=== PATIENT | female | born 1965 | race Caucasian/White ===

== ENCOUNTER 2025-04-17 02:12 | Emergency (ER) | payer MEDICARE, SELFPAY ==
[2025-04-17 02:18] VITALS: BP 150/82
[2025-04-17 02:24] VITALS: BMI 23.4
[2025-04-17 02:32] LABS: Hematocrit 33.9 % (37.0-47.0); Hemoglobin 12.0 g/dL (12.0-16.0); Mean Corp Hgb Conc. 35.4 g/dL (33.0-37.0); Mean Corpuscular Volume 91.6 fL (81.0-99.0); Nucleated Red Blood Cells % 0 %; Platelet Count 413 10^3/uL (130-400); Red Cell Dist. Width 12.0 % (11.5-14.5)
[2025-04-17] MEDS: TORADOL 30 MG IV (02:42)
[2025-04-17] MEDS: ZOFRAN 4 MG IV (02:44)
[2025-04-17] MEDS: NSS 1000 IV (02:45)
--- NOTE | 2025-04-17 02:46 | ED.GENMED ---
History of Present Illness
General
Chief Complaint: Abdominal Symptoms
Source: patient
Exam Limitations: none
Time Seen by Provider: 04/17/25 02:35
Nursing documentation reviewed up to this point in time: agreed with
History of Present Illness
History of Present Illness:
This is a 60-year-old woman who awoke tonight with abrupt onset of severe epigastric pain that radiates to her back accompanied with nausea. She admits to severe pain, feeling restless. No history of similar episodes in the past. She does have
history of kidney stones as well as natural childbirth and admits that current quality of pain is quite similar.
She has history of MS, colitis, GERD, hiatal hernia, irritable bowel syndrome, kidney stones, asthma.
Previous abdominal surgeries include hysterectomy, appendectomy, lysis of adhesions.
Past History
Past History
ED Past Medical History: Asthma, GERD (Hiatal hernia), HTN and Other (MS, colitis, irritable bowel syndrome)
ED Past Surgical History: Appendectomy and Gynecological (hyster)
Social History
Tobacco: Non-smoker
Drug: None
Personal: Single
Living: with family
Employment: Not employed
Family History
Family History: Other (Noncontributory)
Phy Exam
Physical Exam
Physical Exam:
GENERAL: 60-year-old woman appears her stated age, awake and alert, appears in moderate distress, restless, anxious, otherwise cooperative.
EYE: pupils equal and reactive. anicteric
NECK: Supple, nontender, no meningismus, no significant adenopathy.
ENT: oral mucosa is moist. No rhinorrhea.
CARDIAC: Regular rate and rhythm. no murmur.
LUNGS: Clear breath sounds bilaterally, no acute respiratory distress, no wheezes/rales/rhonchi
ABDOMEN: Soft, nondistended, moderate tenderness epigastric region as well as mild to moderate tenderness right upper quadrant, no r/g, no cvat. normoactive BS.
NEUROLOGICAL: Alert and oriented x3, no focal neuro deficits.
SKIN: Warm and dry, normal color, skin intact. No rash.
MUSCULOSKELETAL: No C/C/E. peripheral pulses are full and equal b/l. No palpable tenderness.
PSYCH: Anxious and moderately restless related to pain.
Course
Orders/Labs/Results
Orders:
Orders
04/17/25 02:16
Complete Blood Count/With Diff Urgent
Comprehensive Metabolic Panel Urgent
Lipase Urgent
04/17/25 02:34
EKG [Electrocardiogram (*1)] Urgent
Reason for Study: Abdominal Pain
EKG- Treatment ONCE
04/17/25 02:40
Ketorolac [Toradol] 30 mg .ROUTE .STK-MED ONE
Ketorolac [Toradol] 30 mg IV NOW STA
Ondansetron Injectable [Zofran] 4 mg .ROUTE .STK-MED ONE
04/17/25 02:41
0.9% Sodium Chloride 1000 ml [Nss] 1,000 ml IV BOLUS
Ondansetron Injectable [Zofran] 4 mg IV NOW STA
04/17/25 02:58
Morphine Sulfate 6 mg IV NOW STA
04/17/25 04:11
US Abdomen Complete/Upper Urgent
Comment:
Reason For Exam: acute severe upper abd pain, elevated LFT's
Abnormal Lab Results
04/17/25
02:16
RBC 3.70 L 10^6/uL
(4.20-5.40)
Hct 33.9 L %
(37.0-47.0)
MCH 32.4 H pg
(27.0-31.0)
Plt Count 413 H 10^3/uL
(130-400)
Glucose 142 H mg/dl
(70-99)
AST 65 H U/L
(14-36)
ALT 49 H U/L
(0-35)
Alkaline Phosphatase 141 H U/L
(38-126)
04/17/25 02:16
04/17/25 02:16
Vital Signs
Initial and Last Documented VS:
Initial Vital Signs
Temp Pulse Resp BP Pulse Ox
98.4 F 80 22 150/82 97
04/17/25 02:18 04/17/25 02:18 04/17/25 02:18 04/17/25 02:18 04/17/25 02:18
Last Documented Vital Signs
Temp Pulse Resp BP Pulse Ox
98.4 F 105 19 133/82 95
04/17/25 02:18 04/17/25 04:45 04/17/25 04:45 04/17/25 04:00 04/17/25 04:45
MDM/Problems Addressed
Differential Diagnosis Includes:
Concern for acute biliary colic/cholecystitis, acute pancreatitis, gastric outlet obstruction, small bowel obstruction, renal colic, GERD/gastritis, ischemic bowel. ACS, abdominal aortic aneurysm/dissection are less likely.
MDM/Problems Addressed:
Acute severe upper abdominal pain radiating to the back associated with nausea.
Patient reports adverse reaction to Dilaudid which causes confusion/hallucination but able to take morphine without adverse event.
Will initiate trial IV Toradol for pain and will give Zofran for nausea. Initiate IV fluids.
Labs are pending as is EKG.
Chronic conditions affecting care:
MS, hiatal hernia, GERD, colitis, irritable bowel syndrome.
Chronic conditions affecting care: Previous abdomnial surgery
*Radiology
Radiology exam reviewed: radiology read reviewed
*Pulse Oximetry
SaO2: 97
Oxygen Mode of Delivery: Room air
Patient hypoxic: no
*EKG
Interpreted by ED Provider?: Yes
Interpretation: normal
Comparison EKG: no comparison EKG present
Rate: normal
Rhythm: sinus
[place]: normal axis
Interval: normal interval
QRS Pattern: normal QRS
Ischemia: no ischemia
*Macaroni Maker Interpretation
Rate: normal
Interpretation: normal
Rhythm: sinus
*Critical Care Note
Total Time (30-74mins, 75-104mins- exclusive of procedures): Not Applicable
Update Note
Update Note:
05:55
Patient is pain-free and comfortable after IV dose of morphine. No adverse events.
Now that she is pain-free, abdomen is soft without appreciable tenderness.
Labs are remarkable for minimally elevated LFTs as well as mildly elevated alkaline phosphatase with normal bilirubin. Unremarkable CBC. Normal lipase.
Abdominal ultrasound shows multiple gallstones in the gallbladder but no gallbladder wall thickening. Negative Bailey sign. Common bile duct of 4 mm.
History and exam consistent with acute biliary colic.
Reassuring that patient is pain-free. No evidence of cholecystitis or choledocholithiasis.
Will discharge to home with recommendation she maintain a strict low-fat diet.
Will refer to general surgery for prompt follow-up.
A prescription for a few Percocet as well as Zofran have been provided for as needed return of biliary colic. If this is not effective or if she develops similar pain accompanied with fever, patient knows to promptly return for further evaluation.
ED Attending Note
-
Portions of this chart may have been created with voice recognition software.� Occasional wrong word or��sound alike� substitutions may have occurred due to the inherent limitations of voice recognition software.
Discharge Plan
Departure
Patient Disposition: Home (Routine Discharge)
Date of Disposition: 04/17/25
Time of Disposition: 06:05
Patient with high blood pressure during this ER visit?: No
Condition: Good
Discharge Problem:
Acute biliary colic, Cholelithiasis
Instructions: Gallstones, Low-fat diet
Prescriptions:
New
oxycodone-acetaminophen [Percocet] 5-325 mg Tablet
1 tab PO Q4HPRN PRN (Reason: pain) Qty: 8 0RF
ondansetron 4 mg tablet,disintegrating
4 mg PO QID PRN (Reason: nausea and vomiting) Qty: 20 0RF
No Action
esomeprazole magnesium [Nexium] 40 MG capsule,delayed release(DR/EC)
40 mg PO DAILY
conjugated estrogens [Premarin] 1.25 MG tablet
2.5 mg PO DAILY
nifedipine 30 MG tablet extended release 24hr
30 mg PO DAILY
baclofen 20 MG tablet
20 mg PO .5XPERDAY
tfjcvdwrqq-axxyskp-skotcoyy 1 EACH tablet
2 ea PO PRN PRN (Reason: migraine)
gabapentin 100 MG capsule
200 mg PO TID
oxybutynin chloride 5 MG tablet
5 mg PO BID
topiramate 50 MG tablet
50 mg PO BID
duloxetine 60 MG capsule,delayed release(DR/EC)
60 mg PO .NIGHTLY
lubiprostone 24 MCG capsule
24 mcg PO BID
glatiramer [Copaxone] 40 MG/ML syringe
40 mg SQ .3XPERWEEK
Referrals:
Christian Bazzi MD [Active, Surgical] - Call in 1-3 days for appt
Interventions
Interventions:
*Risk Screen - Suicide Last Done: 04/17/25 02:28
*General Assessment Last Done: 04/17/25 02:28
*Neglect/Abuse Screening Last Done: 04/17/25 02:28
*ED COVID-19 Vaccine History Last Done: 04/17/25 02:28
*ED Influenza Vaccine History Last Done: 04/17/25 02:28
[facility] Risk Assessment Tool Last Done: 04/17/25 02:24
PN-Dkgekx-Npjzcoijba Assessment Last Done: 04/17/25 02:51
Discharge Date and Time
Print Language: SOUTH AFRICAN
[2025-04-17 02:53] LABS: ALT (SGPT) 49 U/L (0-35); AST (SGOT) 65 U/L (14-36); Albumin 4.2 g/dl (3.5-5.0); Alkaline Phosphatase 141 U/L (38-126); Blood Urea Nitrogen 16 mg/dl (7-17); Calcium 9.2 mg/dl (8.4-10.2); Carbon Dioxide 27 mmol/L (22-30); Chloride 104 mmol/L (98-107); Estimated Creatinine Clearance 66 ml/min; Glucose 142 mg/dl (70-99); Lipase 228 U/L (23-300); Potassium 4.0 mmol/L (3.5-5.1); Sodium 137 mmol/L (135-145); Total Protein 6.8 g/dl (6.3-8.2); eGFR > 60.00
[2025-04-17 03:00] VITALS: BP 144/74
[2025-04-17] MEDS: MORPHINE SULFATE 6 MG IV (03:08)
[2025-04-17 04:00] VITALS: BP 133/82
[2025-04-17 05:00] VITALS: BP 125/74
[2025-04-17 06:00] VITALS: BP 128/80
== END 2025-04-17 06:45 | disposition home or self-care (01) ==
LOC: EMR 02:12
PROVIDERS: EMERGENCY PHYSICIAN Emergency Medicine; FAMILY PHYSICIAN Family Medicine
DX: K80.70 Calculus of gallbladder and bile duct without cholecystitis without obstruction (principal); I10 Essential (primary) hypertension; J45.909 Unspecified asthma, uncomplicated; G35.D Multiple sclerosis, unspecified; K21.9 Gastro-esophageal reflux disease without esophagitis; K44.9 Diaphragmatic hernia without obstruction or gangrene; K58.9 Irritable bowel syndrome, unspecified; Z87.442 Personal history of urinary calculi
CPT/HCPCS: 76700; 80053; 83690; 85025; 93005; 96361; 96374; 96375; 99284

== ENCOUNTER 2025-04-17 22:00 | Inpatient (IN) | payer MEDICARE, SELFPAY ==
[2025-04-17] VITALS (7 sets, daily range): BP systolic 94–135; BP diastolic 71–85; BMI 22.5
[2025-04-17 18:00] LABS: Hematocrit 32.9 % (37.0-47.0); Hemoglobin 11.4 g/dL (12.0-16.0); Mean Corp Hgb Conc. 34.7 g/dL (33.0-37.0); Mean Corpuscular Volume 94.0 fL (81.0-99.0); Nucleated Red Blood Cells % 0 %; Platelet Count 364 10^3/uL (130-400); Red Cell Dist. Width 12.3 % (11.5-14.5)
[2025-04-17 18:18] LABS: ALT (SGPT) 322 U/L (0-35); AST (SGOT) 375 U/L (14-36); Albumin 3.8 g/dl (3.5-5.0); Alkaline Phosphatase 262 U/L (38-126); Blood Urea Nitrogen 14 mg/dl (7-17); Calcium 8.6 mg/dl (8.4-10.2); Carbon Dioxide 26 mmol/L (22-30); Chloride 103 mmol/L (98-107); Glucose 107 mg/dl (70-99); Potassium 3.6 mmol/L (3.5-5.1); Sodium 132 mmol/L (135-145); Total Protein 6.4 g/dl (6.3-8.2); eGFR > 60.00
[2025-04-17 18:23] LABS: COVID-19 Antigen Negative (Negative)
[2025-04-17 18:35] LABS: Urine Character Clear (Clear)
[2025-04-17] MEDS: NSS 1000 IV ×2 (18:39→22:54)
[2025-04-17 19:07] LABS: Urine Red Blood Cell 0-2 /HPF (0-2); Urine Squamous Cell 16-20 /LPF (Few); Urine White Cell 0-2 /HPF (0-5)
[2025-04-17 19:08] LABS: Lipase 145 U/L (23-300)
--- NOTE | 2025-04-17 20:07 | ED.GENMED ---
History of Present Illness
General
Chief Complaint: Fever
Source: patient
Exam Limitations: none
Time Seen by Provider: 04/17/25 17:35
Nursing documentation reviewed up to this point in time: agreed with
History of Present Illness
History of Present Illness:
Patient to the emergency department with complaint of fever. She was seen in the ED overnight last night with complaint of right upper quadrant pain. She was afebrile at that time. WBC remained normal. She had minimal elevation of AST ALT. T.
bili was normal. She had an ultrasound completed which identified multiple gallstones within the gallbladder but no evidence of wall thickening. CBD within normal measurement. Pain was controlled with narcotic pain medication while in the ED.
She states that pain eventually resolved and she was discharged home. After arriving home she developed a fever. She reports a fever of 102 that has lasted all day. She states tonight her daughter felt that she looked yellow and advised that she
come back to the emergency department for reassessment. On arrival to the ED she is awake and alert. Temp of 98.9 however she had Tylenol prior to arrival. She denies any abdominal pain. She denies any nausea or vomiting.
Past History
Past History
ED Past Medical History: Asthma, GERD (Hiatal hernia), HTN and Other (MS, colitis, irritable bowel syndrome)
ED Past Surgical History: Appendectomy and Gynecological (hyster)
Social History
Tobacco: Non-smoker
Drug: None
Personal: Single
Living: with family
Employment: Not employed
Family History
Family History: Other (Noncontributory)
Review of Systems
Review of Systems
Allergies reviewed?: Yes
All Other Systems: ROS reviewed and negative except as documented in HPI and ROS
Constitutional: Reports fever and fatigue
EENT: Reports no symptoms
Respiratory: Reports no symptoms
Cardiac: Reports no symptoms
ABD/GI: Reports no symptoms
: Reports no symptoms
Musculoskeletal: Reports no symptoms
Skin: Reports no symptoms
Neurological: Reports no symptoms
Psychiatric: Reports no symptoms
Phy Exam
General Physical Exam
General Presentation: mild distress
General age: appears stated age
General Skin: warm and dry
General Habitus: normal
General Mental: alert
Cardiovascular Exam
Cardiovascular Exam: regular rate/rhythm and no edema
Pulmonary Exam
Pulmonary Exam: lungs clear and no respiratory distress
Gastrointestinal Exam
Gastrointestinal Exam: normal bowel sounds, non tender, soft, no organomegaly, non distended and no cva tenderness
Musculoskeletal Exam
Musculoskeletal Exam: full ROM and neuro vasc intact
Skin Exam
Skin Exam: normal color, warm/dry and no rash
Psychiatric Exam
Psychiatric Exam: normal mood/affect
Course
Orders/Labs/Results
Orders:
Orders
04/17/25 Breakfast
NPO
Allow oral meds: Yes
Allow clear liquids: Sips of Clears
NPO with Ice Chips: Yes
04/17/25 17:48
Complete Blood Count/With Diff Urgent
Comprehensive Metabolic Panel Urgent
Lactic Acid Urgent
Lipase Urgent
Comment: ADD ON
Urinalysis Reflex To Culture Urgent
Date Specimen was Collected: 04/17/25
Time Specimen was Collected: 17:46
Urine Microscopic Reflex Cult Urgent
Blood Culture Urgent
JAKY Source: Blood/Venous
Specimen Description:
04/17/25 18:03
COVID-19 Antigen Urgent
Source: Nasal Swab
Influenza A+B Rapid Molecular Urgent
JAKY Source: Nasal Swab
Specimen Description:
04/17/25 18:33
US Abdomen Limited Urgent
Reason For Exam: upper abd. pain, fever. hx gallstones
04/17/25 18:34
Add On- LAB Urgent
Tests Added?: lipase
0.9% Sodium Chloride 1000 ml [Nss] 1,000 ml IV BOLUS
04/17/25 20:11
LevoFLOXacin 500 MG/100 ML [Levaquin] 500 mg in 100 ml IV NOW
MetroNIDAZOLE 500 MG/100 ML [Flagyl 500 mg] 100 ml IV NOW
04/17/25 21:26
Admit/Transfer Patient As Directed
Co-Sign Provider:
Level of Care: Inpatient admission
Assign to:: Medical/Surgical
Physician / Group: Tomy Plascencia
Diagnosis: Cholecystitis
Reason for Hospitalization: IV abx, Surgical consult
Expected length of stay greater than two midnights?: Yes
ELOS- Estimated Length of Stay in days: 3
I certify the patient meets the requirements for IP care: Yes
PRN Pain Medication Management As Directed
May give lesser potent ordered pain med per pt: Yes
preference::
Protocol:: Medication orders for pain may be administered in a
manner that supports deferring to patient preference
when the pt is:
- Requesting an ordered lesser potent pain medication.
Least to most potent pain medications are defined
as: acetaminophen < NSAID < tramadol < opioids
(morphine, oxycodone, hydromorphone).
- Requesting a lesser dose of the same medication IF
ORDERED.
- Requesting a less intrusive route of administration
if both routes are prescribed by the provider (PO <
IV).
04/17/25 21:29
Code Status As Directed
Resuscitation Status: Full Code
04/17/25 22:23
0.9% Sodium Chloride 1000 ml [Nss] 1,000 ml IV 100 mls/hr
Acetaminophen [Tylenol] 650 mg PO Q4HPRN PRN
Baclofen [Lioresal] 20 mg PO QID
Gabapentin [Neurontin] 100 mg PO TID
Ketorolac [Toradol] 10 mg IV Q6HPRN PRN
Morphine Sulfate 4 mg IV Q4HPRN PRN
dalfampridine 10 mg PO Q12H
04/17/25 22:23
SURGICAL CONSULT Routine
Consulting Provider: Darrell Gomez
Was physician already notified: Yes
Activity As Directed
Activity Level: Out of Bed-Early Mobility
With Assistance
I&O [Intake/ Output] As Directed
Frequency: q12h
Pneumatic Compression Sleeves As Directed
Type: Knee high
Vital Signs As Directed
Frequency: Per unit guidelines
Weight As Directed
Frequency: Daily
DX Deep Vein Thrombosis Video Routine
04/18/25 05:00
MetroNIDAZOLE 500 MG/100 ML [Flagyl 500 mg] 100 ml IV Q8H
04/18/25 06:00
Complete Blood Count/No Diff IN AM
Comprehensive Metabolic Panel IN AM
04/18/25 08:00
esomeprazole magnesium [Nexium] 40 mg PO BID
vibegron [Gemtesa] 75 mg PO DAILY
04/18/25 20:00
LevoFLOXacin 500 MG/100 ML [Levaquin] 500 mg in 100 ml IV Q24H
Abnormal Lab Results
04/17/25
17:48
RBC 3.50 L 10^6/uL
(4.20-5.40)
Hgb 11.4 L g/dL
(12.0-16.0)
Hct 32.9 L %
(37.0-47.0)
MCH 32.6 H pg
(27.0-31.0)
Absolute Neuts (auto) 8.1 H 10^3/uL
(1.4-6.5)
Absolute Lymphs (auto) 0.6 L 10^3/uL
(1.2-3.4)
Neutrophils % 87.6 H %
(42.2-75.2)
Lymphocytes % 6.2 L %
(20.5-51.1)
Sodium 132 L mmol/L
(135-145)
Glucose 107 H mg/dl
(70-99)
Total Bilirubin 3.4 H D mg/dl
(0.2-1.3)
AST 375 H U/L
(14-36)
ALT 322 H U/L
(0-35)
Alkaline Phosphatase 262 H U/L
(38-126)
Urine Bacteria (Reflex) Few A
(Negative)
Urine Albumin (Reflex) 2+ A
(Neg - Trace)
04/17/25 17:48
04/17/25 17:48
Vital Signs
Initial and Last Documented VS:
Initial Vital Signs
Temp Pulse BP Pulse Ox
98.9 F 100 132/74 98
04/17/25 16:38 04/17/25 16:38 04/17/25 16:38 04/17/25 16:38
Last Documented Vital Signs
Temp Pulse Resp BP Pulse Ox
98.6 F 108 18 135/85 99
04/17/25 22:33 04/17/25 22:32 04/17/25 22:32 04/17/25 22:32 04/17/25 22:32
*Radiology
Radiology exam reviewed: radiology read reviewed
*Pulse Oximetry
SaO2: 97
Oxygen Mode of Delivery: Room air
Patient hypoxic: no
*Critical Care Note
Total Time (30-74mins, 75-104mins- exclusive of procedures): Not Applicable
Update Note
Update Note:
Patient to the emergency department for evaluation of fever. She was seen in the emergency department overnight for evaluation of right upper quadrant pain. She was diagnosed at that time with multiple gallstones/renal colic. There was no
evidence of gallbladder wall thickening, no evidence of CBD dilatation. Pain resolved after she was given narcotic pain medication and IV fluids and she was discharged home. She states later this morning she developed a temp of 102 and this has
maintained all day. She denies any further abdominal pain. She was brought back to the emergency department by family for evaluation. Daughter felt that patient's skin was beginning to look yellow. Vital signs are stable and she has remained
afebrile while in ED. Labs reviewed. WBC remains normal at 9.2. AST is now 375, ALT 322, alk phos 262 and T. bili is 3.4. She was sent for repeat upper abdominal ultrasound. Report now with gallbladder wall thickening. Still no evidence for
biliary ductal dilatation. Findings discussed with Dr. Gomez. Recommends admission to hospitalist, repeat CMP in AM. Will hold off on MRCP until evaluation of repeat labs in AM. She was started on IV Levaquin and Flagyl (PCN allergy).
Discussed findings and plan with patient and spouse. She is agreeable to admission. She is resting comfortably however notes the start of mild discomfort to right upper quadrant and back. She declines any pain medication at this time.
ED Attending Note
-
Portions of this chart may have been created with voice recognition software.� Occasional wrong word or��sound alike� substitutions may have occurred due to the inherent limitations of voice recognition software.
Discharge Plan
Departure
Patient Disposition: Admit
Date of Disposition: 04/17/25
Time of Disposition: 20:24
Presentation/result/management discussed w/ accepting MD/DO: Hospitalist
Patient with high blood pressure during this ER visit?: No
Condition: Fair
Covid-19: Not Applicable
Discharge Problem:
Cholecystitis
Interventions
Interventions:
*Risk Screen - Suicide Last Done: 04/17/25 16:23
*General Assessment Last Done: 04/17/25 16:38
*Neglect/Abuse Screening Last Done: 04/17/25 16:38
*ED COVID-19 Vaccine History Last Done: 04/17/25 16:38
*ED Influenza Vaccine History Last Done: 04/17/25 16:38
[facility] Risk Assessment Tool Last Done: 04/17/25 16:21
*Nursing Disposition Last Done: 04/17/25 22:33
ED- Neurological Assessment Last Done: 04/17/25 18:08
ED-Skin Assessment Last Done: 04/17/25 18:08
Discharge Date and Time
Discharge Date/Time: 04/17/25 22:34
[2025-04-17] MEDS: LEVAQUIN 100 IV (20:17)
[2025-04-17] MEDS: FLAGYL 500 MG 100 IV (21:19)
--- NOTE | 2025-04-17 21:33 | HPS.HSE ---
Addendum entered and electronically signed by Tomy Plascencia MD 04/17/25 21:51:
60 female history of multiple sclerosis
Chief complaint epigastric discomfort radiating to the back associated vomiting
2-day history of abdominal tenderness that progressively got worse with radiation to the back mid thoracic region, sharp constant with periods of increase in intensity associated vomiting. Started having fevers of 102. Vomiting improved after
Zofran.
Right upper quadrant tenderness on deep palpation with facial grimacing however without guarding
Acute cholecystitis with transaminitis
Repeat CMP in the a.m.
IV fluids
IV antibiotics with levofloxacin Flagyl blood culture pending
Surgery aware
May consider MRCP pending CMP findings in the a.m.
N.p.o. after midnight
Multiple sclerosis
Continue baclofen and gabapentin
will bring dalfampridine
Migraine history
Nurtec as needed, will bring
Overactive bladder
Gemtesa
Original Note:
Family Physician
-
Family Physician: Derek Galindo
Chief Complaint
-
Abdominal Pain and Fever
History of Present Illness
Patient is a 60 y/o female past medical history of multiple sclerosis, irritable bowel syndrome, and hiatal hernia who presents with abdominal pain and fever. Patient was initially seen at the [facility] ED overnight last night with severe abdominal
pain. At that time her Abd US revealed multiple gallstone but no evidence of acute cholecystitis. At that time patient's LFTs were normal and she was afebrile. Pain improved and she was discharged home. However after discharge she developed
fevers as high as 102F at home prompting her to return to the emergency department. Patient was afebrile upon arrival, but reports taking Tylenol prior to leaving home.
Medical History
Past Medical History
Past Medical History: Reports Other
Additional Past Medical History:
Multiple Sclerosis
Migraine Headache
Irritable Bowel Syndrome
GERD / Hiatal Hernia
Asthma
Past Surgical History: Reports Other
Additional Past Surgical History:
Hysterectomy
Appendectomy
Lysis of Adhesions
Social History
Tobacco: Former Smoker
Alcohol: Occasional
Family History
Family History: Not pertinent
Allergies / Home Medications
Allergies reflects when Allergies were last updated in [facility].
Home Medications with original date entered in [facility]
Allergy/Medication List:
Allergies
Allergy/AdvReac Type Severity Reaction Status Date / Time
erythromycin base Allergy Rash Verified 04/17/25 16:44
hydromorphone (From Dilaudid) Allergy Unknown Verified 04/17/25 16:44
midazolam (From Versed) Allergy hallucinati Verified 04/17/25 16:44
ons
Penicillins Allergy Unknown Verified 04/17/25 16:44
prochlorperazine (From Allergy 'i get a Verified 04/17/25 16:44
Compazine) rash and
jumpy'
Home Medications
conjugated estrogens 1.25 mg tablet (Premarin) 1.25 mg PO DAILY Hormonal Agent 09/19/11
esomeprazole magnesium 40 mg capsule,delayed release (Nexium) 40 mg PO BID Gastrointestinal Issue 09/19/11
baclofen 20 mg tablet 20 mg PO QID Muscle Spasms 04/14/17
gabapentin 100 mg capsule 10 mg PO TID Neurological Condition 04/14/17
biotin 10 mg tablet 10 mg PO DAILY Supplement 04/17/25
cholecalciferol (vitamin D3) 25 mcg (1,000 unit) tablet (Vitamin D3) 25 mcg PO DAILY Supplement 04/17/25
dalfampridine 10 mg tablet,extended release,12 hr 10 mg PO Q12H 04/17/25
magnesium oxide 400 mg PO HS Electrolyte Repletion 04/17/25
potassium 99 mg tablet 99 mg PO DAILY Supplement 04/17/25
prucalopride 2 mg tablet (Motegrity) 2 mg PO HS Constipation 04/17/25
rimegepant 75 mg disintegrating tablet (Nurtec ODT) 75 mg PO DAILYPRN PRN MIGRAINES 04/17/25
vibegron 75 mg tablet (Gemtesa) 75 mg PO DAILY 04/17/25
Review of Systems
-
A 12 point ROS was completed and negative except as noted: Yes
Constitutional: Reports Fever
Respiratory: Denies Cough or Trouble Breathing
Cardiac: Denies Chest Pain or Palpitations
Abdomen/GI: Reports See HPI
Physical Exam
Vital Signs
Vital Signs
Temp Pulse Resp BP Pulse Ox
98.9 F 77 13 107/72 97
04/17/25 16:38 04/17/25 18:00 04/17/25 18:00 04/17/25 18:00 04/17/25 20:07
Physical Exam
General: Comfortable and Conversant
HEENT: Anicteric and Moist mucous membranes
Respiratory: Clear and Non Labored Respirations
Cardiac: S1/S2 and Regular Rhythm
GI: Soft and Tender (Epigastric / RUQ without rebound or guarding)
Musculoskeletal: No Clubbing, No Cyanosis and No Edema
Skin: Warm and Dry
Neuro: Awake, Alert, Oriented and Nonfocal/grossly intact
Psych: Calm
Laboratory Results
-
04/17/25 17:48
04/17/25 17:48
Laboratory Results
Lactic Acid 0.8 mmol/L (0.7-2.0) 04/17/25 17:48
Total Bilirubin 3.4 mg/dl (0.2-1.3) H D 04/17/25 17:48
AST 375 U/L (14-36) H 04/17/25 17:48
ALT 322 U/L (0-35) H 04/17/25 17:48
Alkaline Phosphatase 262 U/L (38-126) H 04/17/25 17:48
Lipase 145 U/L (23-300) 12/08/25 17:48
Abdomen US:
Cholelithiasis.
Suggestion of gallbladder wall thickening, especially anteriorly. Negative sonographic Bailey's sign. Please correlate with clinical symptoms that would suggest acute cholecystitis.
No evidence for biliary ductal dilation.
Data Reviewed
-
Ultrasound: Report Reviewed by me
Lab Data: Labs Reviewed by me
Impression/Plan
-
Acute Cholecystitis with Elevated LFTs, suspect passed gallstone as pain has resolved and no evidence of CBD dilation on ultrasound
-Consult Surgery
-Recheck LFTs in AM, if remains elevated plan for MRCP to evaluate for possible CBD stone
-Continue Levaquin / Flagyl
-Continue analgesic and anti-emetics
Hyponatremia, mild
-Continue IVFs
-Recheck sodium in AM
Multiple Sclerosis
-Continue baclofen and gabapentin
-Patient maintained on dalfampridine as outpatient
Migraine Headache
-Patient is uses Nurtec PRN as outpatient
Irritable Bowel Syndrome
-Patient maintained on Motegrity as outpatient
GERD / Hiatal Hernia
-Continue Protonix
DVT proph: SCDs
Code Status: Full Code
[2025-04-17] MEDS: LIORESAL 20 MG PO (22:53)
[2025-04-17] MEDS: TORADOL 10 MG IV (22:53)
[2025-04-17] MEDS: NEURONTIN 100 MG PO (22:54)
[2025-04-17] MEDS: ZOFRAN 4 MG IV (23:23)
[2025-04-18] MEDS: FLAGYL 500 MG 100 IV ×3 (04:28→21:29)
[2025-04-18 04:36] VITALS: BMI 22.7
[2025-04-18] MEDS: NSS 1000 IV (05:16)
[2025-04-18] MEDS: TORADOL 10 MG IV ×2 (06:15→13:30)
[2025-04-18] MEDS: NEURONTIN 100 MG PO ×3 (08:21→21:13)
[2025-04-18] MEDS: DETROL LA 4 MG PO (08:21)
[2025-04-18] MEDS: LIORESAL 20 MG PO ×3 (08:21→21:13)
[2025-04-18] MEDS: TYLENOL 650 MG PO (08:22)
[2025-04-18 08:52] VITALS: BP 112/63
--- NOTE | 2025-04-18 08:53 | CON.GS ---
Addendum entered and electronically signed by Darrell Gomez MD 04/18/25 15:04:
Correction:
-- Abx: Levo/Flagyl
Addendum entered and electronically signed by Darrell Gomez MD 04/18/25 15:03:
Patient seen and examined.
Patient is a 60 yo F with a PMH of GERD, MS, IBS with chronic constipation, and nephrolithiasis who presents with acute on chronic upper abdominal pain. Ms. Arndt states that over the past month she has had intermittent episodes of upper abdominal
pain which she attributed to her MS. Symptoms occur primarily at night and resolved within hours. She had an attack of upper abdominal/chest pain on 04/14. She was evaluated in the ER and discharged with outpatient management. She subsequently
had an attack yesterday morning - the severity of her pain and radiation to the back prompted presentation to the ER. Associated nausea and vomiting. Fevers up to 102. She reports pale stools, dark urine, and jaundice. She denies any of the
symptoms with her prior attacks. Currently she feels like her pain is much improved and almost resolved.
Gen: NAD
Abd: soft, NT/ND, negative Bailey's sign, non-peritoneal
Labs and imaging reviewed
Patient is a 60 yo F p/w acute on chronic cholecystitis versus choledocholithiasis
The natural history and pathophysiology of biliary and stone disease was discussed. Anatomy was reviewed. Options for management were reviewed. Given her downtrending bilirubin and LFTs would hold on an MRI at this time. Given her persistent
symptoms and severity with lab abnormalities, recommend a laparoscopic cholecystectomy with cholangiogram during this presentation. Timing pending OR availability. She may need repeat labs tomorrow and if at that time they remain elevated would
consider an MRCP. All questions answered.
-- Laparoscopic cholecystectomy with IOC, timing TBD
-- May need MRCP pending labs tomorrow, hold for now given trend down
-- Abx: Zosyn
-- Pain control: Tylenol and IV Dilaudid PRN
Original Note:
Consultation
-
Date/Time Consultation Requested: 04/17/2025
Date/Time Consultation Performed: 04/18/2025
Requesting Provider: Dacia العلي
Performing Provider: Dr. Gomez
Reason for Consultation: Acute cholecystitis
Medical History
-
Chief Complaint: Abdominal pain
History of Present Illness:
Ms. Arndt is a 60-year-old female with a past medical history of MS, IBS, chronic constipation, hiatal hernia, GERD, kidney stones, migraines, past history of colitis presenting with epigastric pain of several months. She initially came to the ER on
04/14 for chest pressure. At that time she described her symptoms as chest heaviness, muscle spasm like pain that made her feel short of breath sweaty and lightheaded and worsened with deep breathing. Workup at the time excluded cardiac causes of
her pain and patient was given pain medication antinausea medication and sent home. On 04/17 morning patient re-presented to the ER for similar epigastric/right upper quadrant pain now with radiation to the back. She reported having nausea vomiting
and abdominal tenderness. She reports having history of similar attacks in the abdomen in the past and reports that it has been going on for a long time however this is the worst episode. She reports no sick contacts or chest pain or shortness of
breath. An abdominal ultrasound in the ED was notable for multiple gallstones but no evidence of gallbladder wall thickening. Liver enzymes are elevated slightly at that time. Patient was diagnosed with acute biliary colic and sent home with
follow-up. Patient then presented again on 04/17 evening with fevers up to 102 and similar abdominal pain in the right upper quadrant radiating to the back. On arrival she was afebrile and pain had been controlled with pain medication given prior
to previous discharge. Another abdominal ultrasound redemonstrated cholelithiasis now with gallbladder wall thickening up to 6.7 mm with negative sonographic Bailey sign with no ductal dilation. Patient was started on IV fluids, IV antibiotics and
liver enzymes showed marked elevation compared to her earlier visit in the morning and new elevation in bilirubin. Patient endorsed dark urine and pale stools this a.m reports that pain has been improving..
Past Medical History
Past Medical History: GERD and Other (Multiple sclerosis, IBS constipation predominant, hiatal hernia, kidney stones, migraines)
Past Surgical History: Appendectomy, Gynecological (Hysterectomy) and Other (Lysis of adhesions)
Social History
Tobacco: Former Smoker
Alcohol: Occasional
Drug: None
Family History
Family History: Reviewed & Not Pertinent
Allergies / Home Medications
Allergy/AdvReac Type Severity Reaction Status Date / Time
erythromycin base Allergy Rash Verified 04/17/25 16:44
hydromorphone (From Dilaudid) Allergy Unknown Verified 04/17/25 16:44
midazolam (From Versed) Allergy hallucinati Verified 04/17/25 16:44
ons
Penicillins Allergy Unknown Verified 04/17/25 16:44
prochlorperazine (From Allergy 'i get a Verified 04/17/25 16:44
Compazine) rash and
jumpy'
�Medication �Instructions �Recorded �Confirmed �Type
conjugated estrogens 1.25 mg 1.25 mg PO DAILY Hormonal Agent 09/19/11 04/17/25 History
tablet (Premarin)
esomeprazole magnesium 40 mg 40 mg PO BID Gastrointestinal Issue 09/19/11 04/17/25 History
capsule,delayed release (Nexium)
baclofen 20 mg tablet 20 mg PO QID Muscle Spasms 04/14/17 04/17/25 History
gabapentin 100 mg capsule 100 mg PO TID Neurological 04/14/17 04/17/25 History
Condition
biotin 10 mg tablet 10 mg PO DAILY Supplement 04/17/25 04/17/25 History
cholecalciferol (vitamin D3) 25 25 mcg PO DAILY Supplement 04/17/25 04/17/25 History
mcg (1,000 unit) tablet (Vitamin
D3)
dalfampridine 10 mg 10 mg PO Q12H 04/17/25 04/17/25 History
tablet,extended release,12 hr
magnesium oxide 400 mg PO HS Electrolyte Repletion 04/17/25 04/17/25 History
potassium 99 mg tablet 99 mg PO DAILY Supplement 04/17/25 04/17/25 History
prucalopride 2 mg tablet 2 mg PO HS Constipation 04/17/25 04/17/25 History
(Motegrity)
rimegepant 75 mg disintegrating 75 mg PO DAILYPRN PRN MIGRAINES 04/17/25 04/17/25 History
tablet (Nurtec ODT)
vibegron 75 mg tablet (Gemtesa) 75 mg PO DAILY 04/17/25 04/17/25 History
Review of Systems
-
History Source: Patient
All other systems: Negative unless noted
Constitutional: Fever
Abdomen/GI: Abdominal Pain, Nausea, Vomiting and Constipated
A 10 point review of systems was completed, and was negative except as per HPI.
Physical Exam
Vital Signs
Temp Pulse Resp BP Pulse Ox
97.6 F 64 16 112/63 99
04/18/25 08:52 04/18/25 08:52 04/18/25 08:52 04/18/25 08:52 04/18/25 08:52
04/17/25 04/18/25 04/19/25
06:59 06:59 06:59
Actual Weight 61.779 kg
Body Mass Index (BMI) 22.7
Lab Results
WBC 9.2 10^3/uL (4.8-10.8) 04/17/25 17:48
Hgb 11.4 g/dL (12.0-16.0) L 04/17/25 17:48
Hct 32.9 % (37.0-47.0) L 04/17/25 17:48
Plt Count 364 10^3/uL (130-400) 04/17/25 17:48
Abs Immat Gran (auto) 0.0 10^3/uL (0-0.05) 04/17/25 17:48
Neutrophils % 87.6 % (42.2-75.2) H 04/17/25 17:48
Physical Exam
General: Well Developed, Well Nourished, No Apparent Distress and Comfortable
HEENT: Normocephalic and Anicteric
GI: Soft, Non Tender, Non Distended and Normal Bowel Sounds
Skin: Warm and Dry
Neuro: Awake and Alert
Assessment / Plan
-
Ms. Arndt is a 60-year-old female with a past medical history of MS, IBS, chronic constipation, hiatal hernia, GERD, kidney stones, migraines, past history of colitis presenting with epigastric pain. Abdominal ultrasound with gallbladder wall
thickening and cholelithiasis, concerning for cholecystitis.
The natural history and pathophysiology of cholecystitis was reviewed. Role of cholecystectomy in preventing future episodes of abdominal pain was discussed. Clinically improving, tentative plan for laparoscopic cholecystectomy with possible
cholangiogram this admission. All questions answered.
#Abdominal pain
#Cholecystitis
Total bili downtrending
LFTs downtrending
Less likely choledocholithiasis, cholangitis
-N.p.o.
-IV fluids
-Levaquin, Flagyl
-Antiemetics Zofran as needed
- Tylenol as needed
- Dilaudid as needed
-Plan for laparoscopic cholecystectomy this admission
[2025-04-18 09:00] VITALS: BP 118/64
[2025-04-18 09:14] LABS: Glucose - Point of Care 66 mg/dl (70-99)
[2025-04-18 09:28] LABS: Hematocrit 31.1 % (37.0-47.0); Hemoglobin 10.9 g/dL (12.0-16.0); Mean Corp Hgb Conc. 35.0 g/dL (33.0-37.0); Mean Corpuscular Volume 95.4 fL (81.0-99.0); Platelet Count 303 10^3/uL (130-400); Red Cell Dist. Width 12.4 % (11.5-14.5)
[2025-04-18 09:32] LABS: Glucose - Point of Care 67 mg/dl (70-99)
[2025-04-18] MEDS: DEXTROSE 50% SYRINGE 12.5 GRAMS IV (09:38)
[2025-04-18] MEDS: D5/0.45%NACL 1000 IV (09:39)
[2025-04-18 10:17] LABS: Glucose - Point of Care 198 mg/dl (70-99)
--- NOTE | 2025-04-18 10:30 | PTCARENOTE ---
patient awake and oriented this am, oral medications given as ordered. patient reporting feeling woozy, vitals noted and rechecked. noted heart rate in 50's and patient more drowsy, still reporting feeling woozy. accucheck blood sugar checked and
found to be 66. apple juice given and blood sugar rechecked after[address] results [address] Espinoza made aware and orders received for D50 , given as ordered at 094, blood sugar checked after 30 minutes and resulted at 198, patient more awake and no
longer feeling woozy, blood sugar monitoring thru out the day. plan of care on going.
--- NOTE | 2025-04-18 10:36 | W.PN.HOSP.TC ---
Today's Communication/Plan
-
Switch IV fluids to dextrose half-normal saline.
Continue with antibiotics
Follow LFTs
Hold baclofen for sedation
Assessment / Plan
Assessment / Plan
Acute Cholecystitis with Elevated LFTs, suspect passed gallstone as pain has resolved and no evidence of CBD dilation on ultrasound
-Ultrasound of abdomen shows gallbladder wall thickening especially anteriorly raising concern for cholecystitis.
- Afebrile and white count normal.
- LFT shows cholestatic hepatitis picture
- Await surgery eval
- Follow up LFTs pending, if remains elevated plan for MRCP to evaluate for possible CBD stone
-Continue Levaquin / Flagyl
-Continue analgesic and anti-emetics
Hyponatremia, mild
-Continue IVFs
-Recheck sodium
Multiple Sclerosis
-No evidence of flare
-Continue baclofen and gabapentin. On high dose of baclofen at home-hold for sedation
-Patient maintained on dalfampridine as outpatient
Lethargy
Patient seemed sedate. Suspect lack of sleep last night and along with pain medication [got morphine last night] and higher dose of baclofen
She is mildly hypoglycemic. No history of diabetes mellitus. She has noted episodes of low sugars at other times in her life.
Change IV fluids to dextrose
Check ammonia for completion.
Nonfocal neurologically.
Will follow clinically.
Migraine Headache
-Patient is uses Nurtec PRN as outpatient
Irritable Bowel Syndrome
-Patient maintained on Motegrity as outpatient
GERD / Hiatal Hernia
-Continue Protonix
DVT proph: SCDs
Code Status: Full Code
Discussed with RN
Discussed with family at bedside
Anticipated Discharge: > 48 hours
Subjective/Interval History
-
Date of Service: April 18, 2025
Patient is sleepy but arousable. When she is awake she is not confused. Daughter at bedside who does not see confusion but she definitely is weak and tired.
Patient did not get much sleep last night. She is on a high dose of baclofen along with gabapentin. Says sedation is not an issue at home.
She got morphine yesterday in the ER but nothing this morning so far.
Abdominal pain has resolved ever since she came in. No appetite. Does not feel nauseous this morning. No shortness of breath. Denies any worsening of weakness. She has a history of multiple sclerosis.
Denies any visual symptoms. No bladder or bowel dysfunction.
Objective Data
-
Labs:
Laboratory Results
04/18/25
09:02
WBC 6.1
Hgb 10.9 L
Hct 31.1 L
Plt Count 303
Sodium Pending
Potassium Pending
Chloride Pending
Carbon Dioxide Pending
BUN Pending
Creatinine Pending
Glucose Pending
Calcium Pending
Total Bilirubin Pending
AST Pending
ALT Pending
Alkaline Phosphatase Pending
Vital Signs:
Vital Signs
Temp Pulse Resp BP Pulse Ox
97.6 F 48 16 118/64 99
04/18/25 08:52 04/18/25 09:00 04/18/25 08:52 04/18/25 09:00 04/18/25 08:52
I&O
04/17/25 04/18/25 04/19/25
06:59 06:59 06:59
Intake Total 800 / 800
Balance 800 / 800
Physical Exam
-
General: Comfortable
Respiratory: Clear to Auscultation and Non Labored Respirations; Negative Accessory Resp Muscle Use
Cardiac: Regular Rhythm and S1/S2; Negative Tachycardic
GI: Soft, Nontender, Nondistended and Normal Bowel Sounds
Neuro: Oriented, No Motor Deficits and Sedated; Negative Tremors, Slurred Speech or Facial Droop
Psych: Calm; Negative Confused
Data Reviewed
-
Labs: Labs Reviewed by me
[2025-04-18 10:44] LABS: Glucose - Point of Care 186 mg/dl (70-99)
[2025-04-18 11:20] LABS: ALT (SGPT) 235 U/L (0-35); AST (SGOT) 174 U/L (14-36); Albumin 3.0 g/dl (3.5-5.0); Alkaline Phosphatase 238 U/L (38-126); Blood Urea Nitrogen 17 mg/dl (7-17); Calcium 8.6 mg/dl (8.4-10.2); Carbon Dioxide 22 mmol/L (22-30); Chloride 110 mmol/L (98-107); Estimated Creatinine Clearance 89 ml/min; Glucose 59 mg/dl (70-99); Potassium 3.4 mmol/L (3.5-5.1); Sodium 135 mmol/L (135-145); Total Protein 5.6 g/dl (6.3-8.2); eGFR > 60.00
--- NOTE | 2025-04-18 11:33 | CM ---
Patient seen bedside w/ mother, initial assessment completed. Patient is a 60 y/o female past medical history of multiple sclerosis, irritable bowel syndrome, and hiatal hernia who presents with abdominal pain and fever.
Patient resides w/ spouse and her mother in a single story home, 1 step to enter. Patient uses w/c and scooter. Patient stated she walks around the house good. No SNF/HC hx. Aqua therapy hx which patient stated she is planning to start again.
Address, point of contact and insurance verified
PCP: Derek Galindo
Pharmacy: [facility]
Plan for laparoscopic cholecystectomy this admission
Plan: CM will cont to follow for d/c planning
[2025-04-18 11:47] LABS: Ammonia < 9 umol/L (9-30)
[2025-04-18 12:05] LABS: Glucose - Point of Care 160 mg/dl (70-99)
[2025-04-18] MEDS: NON-FORMULARY ITEM 1 UNIT PO ×2 (12:40→20:16)
[2025-04-18] MEDS: NON-FORMULARY ITEM 10 MG PO ×2 (12:41→20:17)
[2025-04-18] MEDS: NON-FORMULARY ITEM 75 MG PO (12:48)
[2025-04-18] MEDS: LIORESAL PO (12:48)
[2025-04-18] MEDS: KCL 160 MEQ IV (13:32)
[2025-04-18 16:17] VITALS: BP 121/77
[2025-04-18] MEDS: LEVAQUIN 100 IV (20:15)
[2025-04-18 21:45] LABS: Glucose - Point of Care 111 mg/dl (70-99)
[2025-04-18 23:44] VITALS: BP 116/60
[2025-04-19] VITALS (10 sets, daily range): BP systolic 97–142; BP diastolic 65–85; BMI 23.0
[2025-04-19] MEDS: ZOFRAN 4 MG IV ×3 (00:44→20:05)
[2025-04-19] MEDS: D5/0.45%NACL 1000 IV ×2 (02:10→23:05)
[2025-04-19] MEDS: FLAGYL 500 MG 100 IV ×3 (05:31→21:13)
[2025-04-19] MEDS: TYLENOL 650 MG PO (05:38)
[2025-04-19 06:00] LABS: Glucose - Point of Care 95 mg/dl (70-99)
[2025-04-19 07:37] LABS: Hematocrit 30.0 % (37.0-47.0); Hemoglobin 10.6 g/dL (12.0-16.0); Mean Corp Hgb Conc. 35.3 g/dL (33.0-37.0); Mean Corpuscular Volume 94.0 fL (81.0-99.0); Platelet Count 326 10^3/uL (130-400); Red Cell Dist. Width 12.2 % (11.5-14.5)
[2025-04-19 08:12] LABS: ALT (SGPT) 162 U/L (0-35); AST (SGOT) 61 U/L (14-36); Albumin 2.8 g/dl (3.5-5.0); Alkaline Phosphatase 201 U/L (38-126); Blood Urea Nitrogen 8 mg/dl (7-17); Calcium 8.1 mg/dl (8.4-10.2); Carbon Dioxide 26 mmol/L (22-30); Chloride 109 mmol/L (98-107); Estimated Creatinine Clearance 89 ml/min; Glucose 94 mg/dl (70-99); Potassium 3.8 mmol/L (3.5-5.1); Sodium 137 mmol/L (135-145); Total Protein 5.3 g/dl (6.3-8.2); eGFR > 60.00
[2025-04-19 09:20] LABS: Glucose - Point of Care 91 mg/dl (70-99)
--- NOTE | 2025-04-19 10:57 | W.IMMPOSTOP ---
Surgical Immed Post Op Note
-
Primary Surgeon: Patricia
Assisting Surgeon: Casi PGY2
Pre-op Diagnosis: Choledocholithiasis
Post-op Diagnosis: Choledocholithiasis
Procedure Performed: Laparoscopic cholecystectomy with IOC
Anesthesia Type: General
Specimen / Cultures:
1. Gallbladder
Estimated Blood Loss: 3 cc
Complications: None
Operative Findings:
1. Distended, flaccid GB with small cholesterol stones, mild wall thickening
2. Critical view of safety
3. IOC with distal filling defect, dilated CBD, persisted after Glucagon and flushing
4. Duct and artery taken with clips
--- NOTE | 2025-04-19 11:24 | CON.GI ---
Consultation
-
Date/Time Consultation Performed: 04/19/25
Performing Provider: Peña Reaves MD
Reason for Consultation: CBD stone
Medical History
Chief Complaint / HPI
Chief Complaint: abdominal pain
History of Present Illness:
The patient is a 60-year-old female with past medical history send who presents with abdominal pain. Has been having episodes of epigastric pain with radiation to the back for some time, though became much worse. She was recently In the emergency
room the discharged, now returns with pain and fever. Ultrasound showed gallbladder wall thickening and gallstones, though no duct dilation. LFTs were minimally elevated initially. She had cholecystectomy, and intraoperative cholangiogram showed
CBD stone which did not pass after several maneuvers. Currently she is seen in postop with some nausea though not having any significant abdominal pain. She denies any chest pain or shortness of breath. She usually follows with Dr. Healy at
[facility] for constipation predominant IBS and heartburn.
Past Medical History
Past Medical History: Other (MS, IBS, GERD, hiatal hernia, migraines, asthma)
Past Surgical History: Other (Hysterectomy, appendectomy, lysis of adhesions)
Social History
Tobacco: Former Smoker
Alcohol: None
Family History
Family History: Reviewed & Not Pertinent
Allergies / Home Medications
Allergy/AdvReac Type Severity Reaction Status Date / Time
erythromycin base Allergy Rash Verified 04/18/25 10:40
hydromorphone (From Dilaudid) Allergy Unknown Verified 04/18/25 10:40
midazolam (From Versed) Allergy hallucinati Verified 04/18/25 10:40
ons
Penicillins Allergy Unknown Verified 04/18/25 10:40
prochlorperazine (From Allergy 'i get a Verified 04/18/25 10:40
Compazine) rash and
jumpy'
�Medication �Instructions �Recorded
conjugated estrogens 1.25 mg 1.25 mg PO DAILY Hormonal Agent 09/19/11
tablet (Premarin)
esomeprazole magnesium 40 mg 40 mg PO BID Gastrointestinal Issue 09/19/11
capsule,delayed release (Nexium)
baclofen 20 mg tablet 20 mg PO QID Muscle Spasms 04/14/17
gabapentin 100 mg capsule 100 mg PO TID Neurological 04/14/17
Condition
biotin 10 mg tablet 10 mg PO DAILY Supplement 04/17/25
cholecalciferol (vitamin D3) 25 25 mcg PO DAILY Supplement 04/17/25
mcg (1,000 unit) tablet (Vitamin
D3)
dalfampridine 10 mg 10 mg PO Q12H 04/17/25
tablet,extended release,12 hr
magnesium oxide 400 mg PO HS Electrolyte Repletion 04/17/25
potassium 99 mg tablet 99 mg PO DAILY Supplement 04/17/25
prucalopride 2 mg tablet 2 mg PO HS Constipation 04/17/25
(Motegrity)
rimegepant 75 mg disintegrating 75 mg PO DAILYPRN PRN MIGRAINES 04/17/25
tablet (Nurtec ODT)
vibegron 75 mg tablet (Gemtesa) 75 mg PO DAILY 04/17/25
Review of Systems
-
All other systems: A 12 pt ROS was Negative except as stated above in HPI
Vital Signs
Temp Pulse Resp BP Pulse Ox
98.3 F 77 12 127/67 100
04/19/25 08:06 04/19/25 11:15 04/19/25 11:15 04/19/25 11:15 04/19/25 11:15
Physical Exam
Exam
General: NAD
HEENT: MMM, anicteric, no lymphadenopathy
Heart: Regular, no murmurs
Lungs: CTA bilaterally
Abdomen: normal bowel sounds, soft, surgical sites, clean, dry and intact, mild expected tenderness
Extremeties: no edema
Skin: no rashes
Results
WBC 4.7 10^3/uL (4.8-10.8) L 04/19/25 06:26
Hgb 10.6 g/dL (12.0-16.0) L 04/19/25 06:26
Hct 30.0 % (37.0-47.0) L 04/19/25 06:26
MCV 94.0 fL (81.0-99.0) 04/19/25 06:26
Plt Count 326 10^3/uL (130-400) 04/19/25 06:26
Absolute Neuts (auto) 8.1 10^3/uL (1.4-6.5) H 04/17/25 17:48
Sodium 137 mmol/L (135-145) 04/19/25 06:26
Potassium 3.8 mmol/L (3.5-5.1) 04/19/25 06:26
Chloride 109 mmol/L (98-107) H 04/19/25 06:26
Carbon Dioxide 26 mmol/L (22-30) 04/19/25 06:26
BUN 8 mg/dl (7-17) 04/19/25 06:26
Creatinine 0.6 mg/dL (0.6-1.0) 04/19/25 06:26
Calcium 8.1 mg/dl (8.4-10.2) L 04/19/25 06:26
Total Bilirubin 0.8 mg/dl (0.2-1.3) D 04/19/25 06:26
AST 61 U/L (14-36) H 04/19/25 06:26
ALT 162 U/L (0-35) H 04/19/25 06:26
Alkaline Phosphatase 201 U/L (38-126) H 04/19/25 06:26
Lipase 145 U/L (23-300) 04/17/25 17:48
Diagnostic Image Results:
US:
IMPRESSION: Cholelithiasis.
Suggestion of gallbladder wall thickening, especially anteriorly. Negative sonographic Bailey's sign. Please correlate with clinical symptoms that would suggest acute cholecystitis.
No evidence for biliary ductal dilation.
Echogenic mass within the left lobe of the liver, corresponding to the hemangioma seen on CT scan in 2007, with interval increase in size since 2007.
Prior GI Procedures:
EGD:
Colonoscopy:
Assessment / Plan
-
1. CBD stone: Noted on IOC. Will plan ERCP today. I discussed with the patient and her at length including risks and benefits.
-
-
Thank you for consultation and allowing me to participate in the patient's care. Please call the injection molding machine operator GI physician during the after hours with any questions or concerns.
[2025-04-19] MEDS: DETROL LA PO (12:06)
[2025-04-19] MEDS: LIORESAL PO ×2 (12:06)
[2025-04-19] MEDS: NON-FORMULARY ITEM PO ×2 (12:06)
[2025-04-19] MEDS: NEURONTIN PO ×2 (12:06→17:36)
--- NOTE | 2025-04-19 13:11 | W.PN.HOSP.TC ---
Today's Communication/Plan
-
For ERCP today
Continue with antibiotics
Assessment / Plan
Assessment / Plan
Acute Cholecystitis
Cholelithiasis
Choledocholithiasis
Post laparoscopic cholecystectomy today
Going for ERCP today
Afebrile. White count normal. Nontoxic.
Improving LFTs.
Will discontinue antibiotics post ERCP if am okay from GI standpoint
Hyponatremia normalized
Multiple Sclerosis
-No evidence of flare
-Continue baclofen and gabapentin. On high dose of baclofen at home-hold for sedation
-Patient maintained on dalfampridine as outpatient
Lethargy
Resolved
Migraine Headache
-Patient is uses Nurtec PRN as outpatient
Irritable Bowel Syndrome
-Patient maintained on Motegrity as outpatient
GERD / Hiatal Hernia
-Continue Protonix
DVT proph: SCDs
Code Status: Full Code
Discussed with family at bedside
Discussed surgery after the lap jasvir about the positive IOC n GI consult
Anticipated Discharge: 24 - 48 hours
Subjective/Interval History
-
Date of Service: April 19, 2025
Feels uneasy discomfort in stomach. She is post cholecystectomy. IOC reveals a CBD stone. Going for ERCP.
Denies shortness of breath or chest pain.
No dizziness.
Objective Data
-
Labs:
Laboratory Results
04/19/25
06:26
WBC 4.7 L
Hgb 10.6 L
Hct 30.0 L
Plt Count 326
Sodium 137
Potassium 3.8
Chloride 109 H
Carbon Dioxide 26
BUN 8
Creatinine 0.6
Glucose 94
Calcium 8.1 L
Total Bilirubin 0.8 D
AST 61 H
ALT 162 H
Alkaline Phosphatase 201 H
Vital Signs:
Vital Signs
Temp Pulse Resp BP Pulse Ox
97.8 F 84 18 110/65 97
04/19/25 12:04 04/19/25 12:04 04/19/25 12:04 04/19/25 12:04 04/19/25 12:04
I&O
04/18/25 04/19/25 04/20/25
06:59 06:59 06:59
Intake Total 800 / 800 2290 / 2290 50 / 50
Output Total 250 / 250
Balance 800 / 800 2040 / 2040 50 / 50
Physical Exam
-
General: Comfortable
Respiratory: Clear to Auscultation and Non Labored Respirations; Negative Accessory Resp Muscle Use
Cardiac: Regular Rhythm and S1/S2; Negative Tachycardic
GI: Soft, Nondistended, Normal Bowel Sounds and Tender (discomfort on incisions)
Neuro: AO x 3
Psych: Calm
Data Reviewed
-
Labs: Labs Reviewed by me
[2025-04-19 13:39] LABS: Glucose - Point of Care 115 mg/dl (70-99)
[2025-04-19] MEDS: LIORESAL 20 MG PO ×2 (18:04→21:13)
[2025-04-19] MEDS: LOVENOX 40 MG SC (18:04)
[2025-04-19] MEDS: CYMBALTA DELAYED RELEASE 60 MG PO (18:40)
[2025-04-19] MEDS: LEVAQUIN 100 IV (19:43)
[2025-04-19] MEDS: NON-FORMULARY ITEM 1 UNIT PO (19:43)
[2025-04-19] MEDS: NON-FORMULARY ITEM 10 MG PO (19:43)
[2025-04-19] MEDS: NEURONTIN 100 MG PO (21:13)
[2025-04-19] MEDS: D5/0.45%NACL IV (23:05)
[2025-04-20 03:19] VITALS: BP 131/70
[2025-04-20] MEDS: ZOFRAN 4 MG IV (03:19)
[2025-04-20] MEDS: FLAGYL 500 MG 100 IV (04:27)
[2025-04-20 05:06] VITALS: BMI 23.1
--- NOTE | 2025-04-20 06:51 | W.PN.GI.CBS2 ---
Today's Communication / Plan
-
Please see assessment and plan for details.
Assessment / Plan
-
1. CBD stone: Postcholecystectomy, noted on IOC, status post ERCP with needle-knife sphincterotomy and balloon sweep, overall doing very well, no signs of pancreatitis today. Will await morning labs, though continue postoperative care per surgery.
We will sign off now, please call back with any further questions.
Subjective
Subjective
Date of Service: April 20, 2025
Patient feeling well overnight, no nausea or vomiting, tolerated clears without difficulty. Some mild incisional pain though otherwise without any abdominal pain.
Objective
Data Reviewed
Laboratory Data:
Laboratory Results
04/19/25 06:26
Laboratory Results
Total Bilirubin 0.8 mg/dl (0.2-1.3) D 04/19/25 06:26
AST 61 U/L (14-36) H 04/19/25 06:26
ALT 162 U/L (0-35) H 04/19/25 06:26
Alkaline Phosphatase 201 U/L (38-126) H 04/19/25 06:26
Lipase 145 U/L (23-300) 04/17/25 17:48
Vital Signs and I&O:
Vital Signs
Temp Pulse Resp BP Pulse Ox
98.8 F 74 16 131/70 99
04/20/25 03:19 04/20/25 03:19 04/20/25 03:19 04/20/25 03:19 04/20/25 03:19
I&O
04/18/25 04/19/25 04/20/25
06:59 06:59 06:59
Intake Total 800 / 800 2290 / 2290 3700 / 3700
Output Total 250 / 250 3600 / 3600
Balance 800 / 800 2040 / 2040 100 / 100
Physical Exam
Physical Exam
General: NAD
Abdomen: normal bowel sounds, soft, mild incisional tenderness, no masses or bruits, no ascites
[2025-04-20 07:03] VITALS: BP 136/74
[2025-04-20 07:56] LABS: ALT (SGPT) 157 U/L (0-35); AST (SGOT) 70 U/L (14-36); Albumin 2.9 g/dl (3.5-5.0); Alkaline Phosphatase 255 U/L (38-126); Blood Urea Nitrogen 3 mg/dl (7-17); Calcium 8.5 mg/dl (8.4-10.2); Carbon Dioxide 29 mmol/L (22-30); Chloride 107 mmol/L (98-107); Estimated Creatinine Clearance 89 ml/min; Glucose 116 mg/dl (70-99); Potassium 3.6 mmol/L (3.5-5.1); Sodium 138 mmol/L (135-145); Total Protein 5.4 g/dl (6.3-8.2); eGFR > 60.00
--- NOTE | 2025-04-20 09:06 | W.PN.GS2 ---
Today's Communication / Plan
-
-- DC instructions updated
-- F/u in 2-4 weeks
Assessment / Plan
-
Patient is a 60 yo F p/w choledocholithiasis
POD#1 s/p laparoscopic cholecystectomy with IOC
PPD#1 s/p ERCP with stone extraction
AVSS
Labs notable for normal electrolytes, renal function, bilirubin, stable LFTs, mild bump in ALP
Clinically doing well. No postoperative concerns. DC instructions updated. Follow-up as an outpatient.
-- Regular diet
-- Pain control: Tylenol, Toradol, Tramadol
-- DC instructions updated
-- F/u in 2-4 weeks
Subjective Data
-
Date of Service: April 20, 2025
No complaints. Pain well-controlled. No nausea or vomiting. No fevers.
Objective Data
-
Intake and Output
04/19/25 04/20/25 04/21/25
06:59 06:59 06:59
Intake Total 2290 / 2290 3700 / 3700
Output Total 250 / 250 3600 / 3600
Balance 2040 / 2040 100 / 100
Intake:
Oral fluids 840 / 840 1440 / 1440
IV fluids (Total) 1000 / 1000 1860 / 1860
LR 50 / 50
Normosol 50 / 50
IV piggybacks 450 / 450 400 / 400
Output:
Urine, Voided 250 / 250 3600 / 3600
Other:
How many times incontinent 1 1
MODERATE amount urine
Number of approximated MODERATE 1 1
amounts of urine
Number of approximated LARGE 2
amounts of urine
Vital Signs
Temp Pulse Resp BP Pulse Ox
98.8 F 74 16 131/70 99
04/20/25 03:19 04/20/25 03:19 04/20/25 03:19 04/20/25 03:19 04/20/25 03:19
Lab Results
04/19/25 06:26
04/20/25 06:20
Calcium 8.5 mg/dl (8.4-10.2) 04/20/25 06:20
Total Bilirubin 0.7 mg/dl (0.2-1.3) 04/20/25 06:20
AST 70 U/L (14-36) H 04/20/25 06:20
ALT 157 U/L (0-35) H 04/20/25 06:20
Alkaline Phosphatase 255 U/L (38-126) H 04/20/25 06:20
Total Protein 5.4 g/dl (6.3-8.2) L 04/20/25 06:20
Albumin 2.9 g/dl (3.5-5.0) L 04/20/25 06:20
Physical Exam
-
Gen: NAD
Abd: soft, mild tenderness, ND, non-peritoneal, incisions c/d/i - no erythema, ecchymosis or drainage
Patient has a srinivasan catheter: No
Patient has a central line: No
[2025-04-20] MEDS: CYMBALTA DELAYED RELEASE 60 MG PO (09:50)
[2025-04-20] MEDS: PREMARIN 1.25 MG PO (09:50)
[2025-04-20] MEDS: NEURONTIN 100 MG PO (09:50)
[2025-04-20] MEDS: LIORESAL 20 MG PO (09:51)
[2025-04-20] MEDS: NON-FORMULARY ITEM 1 MG PO (09:51)
[2025-04-20] MEDS: DETROL LA 4 MG PO (09:51)
[2025-04-20] MEDS: NON-FORMULARY ITEM 1 UNIT PO (09:52)
--- NOTE | 2025-04-20 10:35 | VNURNOTE ---
Chart reviewed. [facility] liaison met with pt at bedside. Explained services: short term, intermittent, skilled. Patient pleasant, verbalized understanding and stated she didn't think she needed home services. She plans on following up with her Drs:
Neurologist (yesica MS) and surgeon. BISHOP Patel updated. No referral placed.
[2025-04-20] MEDS: D5/0.45%NACL 1000 IV (11:42)
--- NOTE | 2025-04-20 11:55 | W.DCSUMMARY ---
Discharge Summary
Discharge Data
Date of Admission: 04/17/25
Date of Discharge: 04/20/25
-
Pending Results: Yes (Gallbladder pathology)
Hospital Course
Primary diagnosis:
Acute cholecystitis
Cholelithiasis
Choledocholithiasis
Status post lap cholecystectomy and ERCP
Secondary diagnosis:
Multiple sclerosis
Migraine headaches
Irritable bowel syndrome
Gastroesophageal reflux disease
Hospital course:
Patient presented with epigastric discomfort radiating to back and vomiting and diagnosed to have acute cholecystitis with cholelithiasis on imaging.�She went on to have laparoscopic cholecystectomy and intraoperative cholangiogram showed CBD stone
so had an ERCP. LFTs were improving. She was tolerating diet. She was advised to repeat LFTs in a week to make sure they are normalized.
No changes were made to her home medication regimen.
Today she is breathing comfortable. Denies nausea vomiting. Tolerated oral solid diet. Abdomen was soft without tenderness apart from incisional area discomfort. Chest was clear. No dizziness.
Afebrile, pulse was 74, blood pressure 1 3674, not hypoxic.
Deemed stable for discharge home today.
Consultants on board:
Interventional GI-Michael Rubio
General Surgery-Darrell Maldonado
Portions of this chart may have been created with voice recognition software. Occasional wrong word or 'sound alike' substitutions may have occurred due to the inherent limitations of voice recognition software.
Discharge Plan
-
Patient Disposition: Home (Routine Discharge)
Discharge Diagnosis/Procedures: Acute cholecystitis with cholelithiasis and choledocholithiasis status post laparoscopic cholecystectomy and ERCP
Diet: Regular and Low Fat
Additional Diets: Follow a low-fat diet if any issues with bloating or diarrhea
Activity: No strenuous activity
Additional Activity: No heavy lifting (>20 lbs) or strenuous activities for 2 to 3 weeks postoperatively but there should be any issue with
Driving Restrictions: No driving if too sore or taking narcotics yeah
Bathing Restrictions: OK to Shower
Blood Work: CMP blood work in one week -arrange through your PCP
Wound Care: Keep incisions clean and dry. Glue will flake off in 2 to 3 weeks. Stitches will dissolve. Use ice to the abdomen to reduce any bruising or swelling.
Activity Restrictions/Additional Instructions:
Call for fevers (>100.5), nausea vomiting, nursing abdominal pain
Referrals:
Darrell Gomez MD [Active, Surgical] - in two to four weeks
Derek Galindo MD [Family Provider, Family Practice] - in less than 1 week
Prescriptions:
New
acetaminophen 325 mg Tablet
650 mg PO Q4HPRN PRN (Reason: mild pain/ fever>100.5F) Qty: 1 0RF
Continued
esomeprazole magnesium [Nexium] 40 MG capsule,delayed release(DR/EC)
40 mg PO BID
conjugated estrogens [Premarin] 1.25 MG tablet
1.25 mg PO DAILY
baclofen 20 MG tablet
20 mg PO QID
gabapentin 100 MG capsule
100 mg PO TID
Gemtesa 75 mg Tablet
75 mg PO DAILY
biotin 10 mg Tablet
10 mg PO DAILY
potassium 99 mg Tablet
99 mg PO DAILY
cholecalciferol (vitamin D3) [Vitamin D3] 25 mcg (1,000 unit) Tablet
25 mcg PO DAILY
dalfampridine 10 mg Tablet Extended Release 12 Hr
10 mg PO Q12H
prucalopride [Motegrity] 2 mg Tablet
2 mg PO HS
magnesium oxide 400 mg magnesium Tablet
400 mg PO HS
Nurtec ODT 75 mg Tablet,Disintegrating
75 mg PO DAILYPRN PRN (Reason: MIGRAINES)
Patient Comments:
FREE FROM COMPANY
duloxetine 60 mg Capsule,Delayed Release(Dr/Ec)
60 mg PO DAILY
Discharge Orders:
Discharge Patient (As Directed); Ordered 04/20/25
Ordered By: Isaias Espinoza
Discharge Date and Time
Print Language: GUATEMALAN
[2025-04-20 12:13] VITALS: BP 121/69
[2025-04-20 12:48] VITALS: BP 132/70
--- NOTE | 2025-04-20 14:18 | CM ---
MD entered order or discharge .
Initially she requested [facility].
Spoke with pt she declined [facility] .
will drive her home .
IMM reviewed signed .
PLAN Home no needs
== END 2025-04-20 13:21 | disposition home or self-care (01) | DRG 445 ==
LOC: 4 EAST ACU 22:00
PROVIDERS: Internal Medicine Gastroenterology; Nurse Practitioner; Physician Assistant Medical; Surgery; ADMITTING PHYSICIAN Hospitalist; ATTENDING PHYSICIAN Internal Medicine; CONSULT PHYSICIAN Internal Medicine Gastroenterology; EMERGENCY PHYSICIAN Emergency Medicine; FAMILY PHYSICIAN Family Medicine
PROC: BF101ZZ Fluoroscopy of Bile Ducts using Low Osmolar Contrast (ICD-10-PCS; 2025-04-19)
PROC: BF4CZZZ Ultrasonography of Hepatobiliary System, All (ICD-10-PCS; 2025-04-19)
PROC: 0FC98ZZ Extirpation of Matter from Common Bile Duct, Via Natural or Artificial Opening Endoscopic (ICD-10-PCS; 2025-04-19)
DX: K80.62 Calculus of gallbladder and bile duct with acute cholecystitis without obstruction (principal); E87.1 Hypo-osmolality and hyponatremia; G35.D Multiple sclerosis, unspecified; G43.909 Migraine, unspecified, not intractable, without status migrainosus; J45.909 Unspecified asthma, uncomplicated; K21.9 Gastro-esophageal reflux disease without esophagitis; K44.9 Diaphragmatic hernia without obstruction or gangrene; K58.1 Irritable bowel syndrome with constipation; K66.0 Peritoneal adhesions (postprocedural) (postinfection); N32.81 Overactive bladder; Z79.899 Other long term (current) drug therapy; Z87.442 Personal history of urinary calculi; Z87.891 Personal history of nicotine dependence
CPT/HCPCS: 74300; 74330; 76000; 76705; 80053; 81003; 81015; 82140; 82962; 83605; 83690; 85025; 85027; 87040; 87502; 87811; 88304; 96365; 96367; 99285; A4300; C1769; J1610